=== PATIENT | female | born 1945 | race Caucasian/White ===

== ENCOUNTER 2018-04-23 13:57 | Emergency (ER) | payer OTHER, SELFPAY ==
[2018-04-23 14:05] VITALS: BP 151/83; PULSE 100; RESP 14; TEMP 35.9; O2SAT 100; BMI 25.0
--- NOTE | 2018-04-23 14:10 | DI.RAD.S_ITS ---
PROCEDURE: XR WRIST RT MIN 3V INDICATIONS: fall, wrist pain TECHNIQUE: 4 views of the wrist were acquired. COMPARISON: None. FINDINGS: Bones: No dislocations. No suspicious bony lesions. There is a transverse fracture along the dorsum of the distal radius, best seen on the lateral view Scaphoid view: No scaphoid trauma found. Soft tissues: No suspicious soft tissue calcifications. IMPRESSION: No scaphoid trauma found. There is an acute appearing transverse fracture slightly impacted along the dorsal margin of the distal radius best seen on the lateral view. Dictated by: Jasvir Birmingham M.D. on 04/23/2018 at 15:05 Approved by: Jasvir Birmingham M.D. on 04/23/2018 at 15:06
[2018-04-23 15:17] VITALS: PULSE 82
--- NOTE | 2018-04-23 16:12 | ED.UPPEXIN ---
HPI - Extremity Injury (Upper) <LIO Wu - Last Filed: 04/23/18 22:10> General Chief Complaint: Extremity Injury, Upper Stated Complaint: FELL AND POSSIBLY BROKEN WRIST Time Seen by Provider: 04/23/18 16:13 Source: patient Mode of arrival: ambulatory Limitations: no limitations History of Present Illness HPI narrative: 72-year-old female with history of migraine headaches that is a nonsmoker here for complaint of pain into her right wrist. She states [place] had months on and slipped causing her to fall forward with outstretched hand to stop her fall. She denies any head injury. She denies any other injuries at this timeframe. Pain is limited to the right wrist. Increased pain with movement of the right wrist. Decreased pain with ice. No other concerns or complaints at this time. Related Data Home Medications Medication Instructions Recorded Confirmed acyclovir 400 mg PO 04/23/18 doxycycline monohydrate 04/23/18 gabapentin 600 mg PO DAILY 04/23/18 04/23/18 nortriptyline 50 mg PO BID 04/23/18 04/23/18 omeprazole 20 mg PO DAILY 04/23/18 04/23/18 rizatriptan 04/23/18 Previous Rx's Medication Instructions Recorded hydrocodone-acetaminophen 1 tab PO Q4-6H PRN #10 tab 04/23/18 Allergies Allergy/AdvReac Type Severity Reaction Status Date / Time albuterol AdvReac Intermediate Palpitation Verified 04/23/18 14:08 s Review of Systems <LIO Wu - Last Filed: 04/23/18 22:10> Review of Systems All systems reviewed & are unremarkable except as noted in HPI and below Constitutional Denies chills, Denies fever(s), Denies lethargy and Denies weakness Eyes Denies change in vision, Denies eye discharge, Denies irritation and Denies loss of vision ENT Ears, Nose, Mouth, and Throat: Denies change in voice, Denies neck pain and Denies sore throat Cardiovascular Denies chest pain, Denies irregular heart rhythm, Denies lightheadedness, Denies palpitations, Denies dyspnea, Denies dyspnea on exertion and Denies orthopnea Respiratory Denies cough, Denies dyspnea, Denies dyspnea on exertion and Denies wheezing Gastrointestinal Gastrointestinal: Denies abdominal pain, Denies change in bowel habits, Denies diarrhea, Denies nausea and Denies vomiting Genitourinary Denies hematuria, Denies flank pain, Denies urinary incontinence and Denies urinary urgency Musculoskeletal Denies neck pain Comments: Right wrist pain Integumentary/Breasts Denies pruritus, Denies erythema, Denies rash and Denies wounds Neurologic Denies confusion, Denies loss of vision and Denies weakness Psychiatric Denies anxiety, Denies confusion, Denies depression, Denies homicidal ideation and Denies suicidal ideation Endocrine Denies palpitations Allergic/Immunologic Denies wheezing Exam <LIO Wu - Last Filed: 04/23/18 22:10> Initial Vital Signs Initial Vital Signs: Vital Signs Temperature 96.7 F L 04/23/18 14:05 Pulse Rate 100 H 04/23/18 14:05 Respiratory Rate 14 04/23/18 14:05 Blood Pressure 151/83 H 04/23/18 14:05 Pulse Oximetry 100 04/23/18 14:05 Const General: cooperative and well developed Nutritional Appearance: well nourished Orientation: alert, awake, oriented x3 and not confused [facility] Mouth: oral mucosae normal and moist mucous membranes Eyes Conjunctivae: conjunctivae normal Sclera: sclerae normal Pupils: PERRL EOM: EOM intact bilaterally Resp Effort & Inspection: normal respiratory effort, able to speak in complete sentences, no respiratory distress and no use of accessory muscles Auscultation: clear to auscultation bilaterally, no rales, no rhonchi and no wheezes Cardio Rate: regular rate Rhythm: regular rhythm Heart Sounds: no click, no gallops, no murmurs and no rubs Pulses: normal peripheral pulses GI Inspection: non-distended Palpation: soft, no hepatosplenomegaly, No guarding, No pulsatile mass and No tender Auscultation: normal bowel sounds Skin General: no rashes or lesions noted, No jaundice and No petechiae Neuro General: alert, oriented x3, gait normal and no focal motor deficits Speech: speech normal Extrem Other: Right wrist with no open lesions. No deformities. Slight swelling. No ecchymosis. Distal sensation is intact. Distal range of motion is intact. Distal cap refill less than 2 sec. No snuff box tenderness <Cyndi Rodriguez DO - Last Filed: 04/24/18 13:21> Initial Vital Signs Initial Vital Signs: Vital Signs Temperature 96.7 F L 04/23/18 14:05 Pulse Rate 100 H 04/23/18 14:05 Respiratory Rate 14 04/23/18 14:05 Blood Pressure 151/83 H 04/23/18 14:05 Pulse Oximetry 100 04/23/18 14:05 Procedures <LIO Wu - Last Filed: 04/23/18 22:10> Orthopedic Splinting/Casting Injury #1: Side: right Upper Extremity Injury Location: wrist Upper Extremity Immobilizer: sugar tong splint Additional Comments: Sugar tong splint applied to right wrist by nursing staff. Applied appropriately. Distal CMS is intact Course <LIO Wu - Last Filed: 04/23/18 22:10> Orders Ordered: ED Orders 04/23/18 14:10 XR wrist RT min 3V Stat Vital Signs - 8 hr 04/23/18 15:17 Pulse Rate [Right Radial] 82 <Cyndi Rodriguez DO - Last Filed: 04/24/18 13:21> Orders Ordered: ED Orders 04/23/18 14:10 XR wrist RT min 3V Stat Vital Signs - 8 hr 04/23/18 15:17 Pulse Rate [Right Radial] 82 MDM - Extremity Injury (Upper) <LIO Wu - Last Filed: 04/23/18 22:10> Imaging Data Right wrist : Radiologist's impression: PROCEDURE: XR WRIST RT MIN 3V INDICATIONS: fall, wrist pain TECHNIQUE: 4 views of the wrist were acquired. COMPARISON: None. FINDINGS: Bones: No dislocations. No suspicious bony lesions. There is a transverse fracture along the dorsum of the distal radius, best seen on the lateral view Scaphoid view: No scaphoid trauma found. Soft tissues: No suspicious soft tissue calcifications. IMPRESSION: No scaphoid trauma found. There is an acute appearing transverse fracture slightly impacted along the dorsal margin of the distal radius best seen on the lateral view. Dictated by: Jasvir Birmingham M.D. on 04/23/2018 at 15:05 Approved by: Jasvir Birmingham M.D. on 04/23/2018 at 15:06 [facility] Narrative Medical decision making narrative: X-ray the right wrist shows a transverse distal right radius fracture that is slightly impacted. She is placed in a sugar-tong splint for comfort and support. She is also placed in a sling. She is from [place] and is returning to [place] and will follow up with Orthopedics while she is there. Ice and elevation help with swelling. [id number] naproxen that she has as needed for discomfort. Small amount of [place] is prescribed for breakthrough pain. For any worsening symptoms return to the emergency room. Discharge Plan Departure Patient Disposition: Home Clinical Impression: Distal radial fracture Discharge Date/Time: 04/23/18 17:16 Interventions: ED Discharge Assessment Last Done: 04/23/18 17:14 Instructions: DI for Distal Radius Fracture Activity Restrictions/Additional Instructions: X-ray shows a fracture to distal right radius. You have been placed in a splint for comfort and support use as directed. Also use sling as directed. Ice and elevation to the right wrist over the next several days to help with any swelling. [id number] naproxen that you have as needed for discomfort small amount of [place] is prescribed for breakthrough pain use as directed no driving while on the [place]. Follow up with Orthopedics in the next several days for re-evaluation. For any worsening symptoms return to the emergency room. Prescriptions: New hydrocodone-acetaminophen 5-325 mg tablet 1 tab PO Q4-6H PRN (Reason: pain) Qty: 10 RF: 0 No Action gabapentin 600 mg Tablet 600 mg PO DAILY RF: 0 nortriptyline 50 mg Capsule 50 mg PO BID RF: 0 acyclovir 400 mg Tablet 400 mg PO RF: 0 doxycycline monohydrate 100 mg Capsule RF: 0 omeprazole 20 mg Capsule,Delayed Release(Dr/Ec) 20 mg PO DAILY RF: 0 rizatriptan 10 mg RF: 0 Referrals: [facility] [Provider Group] <Cyndi Rodriguez DO - Last Filed: 04/24/18 13:21> Cosign ED Attending [place] Attestation: I was immediately available in the department for consultation. Documentation has been reviewed. I agree with assessment and plan.
== END 2018-04-23 17:16 | disposition home or self-care (01) ==
PROVIDERS: Emergency Provider Nurse Practitioner Family
DX: S52.501A Unspecified fracture of the lower end of right radius, initial encounter for closed fracture (principal); W01.0XXA Fall on same level from slipping, tripping and stumbling without subsequent striking against object, initial encounter
CPT/HCPCS: 29125; 29240; 73110; 99283